=== PATIENT | male | born 1990 | race Two or more races ===

== ENCOUNTER 2020-02-09 05:06 | Emergency (ER) | payer SELFPAY ==
[~2020-02-09] VITALS: Ht 172.7 cm; Wt 110.0 kg
--- NOTE | 2020-02-09 05:21 | PHYS DOC ---
General Adult EDM: Chief Complaint: ALCOHOL INTOXICATION HPI: HPI: 29 yo M presents to the ed bibems with c/o nausea, vomiting and epigastric abdominal pain that started around 10pm last night. Reports last drink of alcohol was 4pm last night-had 5 pints of fireball and multiple cervazas. Takes no routine medications, has no pcp. Moved here from [facility] 13 years ago. No PSH. Denies any other co-ingestants. (TAHIRA KAMARA DO) Review of Systems: Review of Systems: Constitutional: Denies fever or chills. [] Eyes: Denies change in visual acuity. [] HENT: Denies nasal congestion or sore throat. [] Respiratory: Denies cough or shortness of breath. [] Cardiovascular: Denies chest pain or edema. [] GI: Denies hematochezia, hematemesis, melena or diarrhea. [] : Denies dysuria. [] Musculoskeletal: Denies back pain or joint pain. [] Integument: Denies rash. [] Neurologic: Denies headache, focal weakness or sensory changes. [] Endocrine: Denies polyuria or polydipsia. [] Lymphatic: Denies swollen glands. [] Psychiatric: Denies depression or anxiety. [] (TAHIRA KAMARA DO) Heart Score: Risk Factors: Risk Factors: DM, Current or recent (<one month) smoker, HTN, HLP, family history of CAD, obesity. Risk Scores: Score 0 - 3: 2.5% MACE over next 6 weeks - Discharge Home Score 4 - 6: 20.3% MACE over next 6 weeks - Admit for Clinical Observation Score 7 - 10: 72.7% MACE over next 6 weeks - Early Invasive Strategies (TAHIRA KAMARA DO) Physical Exam: PE: Constitutional: Actively dry heaving with clear emesis, cannot appreciate any alcohol on breath HENT: Normocephalic, atraumatic, dry mucous membranes, tongue fasciculations Eyes: EOMI, conjunctiva normal, no discharge. Neck: Normal range of motion, supple, Cardiovascular: S1/2 present, regular rhythm, tachycardic in the low 110s Lungs & Thorax: Speaking in full sentences, bilateral equal chest rise, no tachypnea or increased work of breathing Abdomen: soft, epigastric abdominal discomfort Skin: Warm, dry, no erythema, no rash, tremulous and shaky Extremities: No tenderness, no cyanosis, no edema Neurologic: Alert and oriented X 3, normal motor function, normal sensory fun ction, no focal deficits noted. [] Psychologic: Affect normal, judgement normal, mood normal, kind/appreciative of care (TAHIRA KAMARA DO) EKG: EKG: Sinus rhythm at 96 bpm, no axis deviation, QTC 443, no obvious T wave inversions, ST elevations or ST depressions (TAHIRA KAMARA DO) Radiology/Procedures: Radiology/Procedures: IMAGING REPORT Signed PATIENT: KIN HERNÁNDEZ ACCOUNT: [id number] : 1990 LOCATION: ER AGE: 29 SEX: M EXAM STATUS: PRE ER ORD. PHYSICIAN: TAHIRA KAMARA DO REASON: n/v PROCEDURE: CHEST AP ONLY CHEST AP ONLY INDICATION: Reason: n/v / Spl. Instructions: / History: . COMPARISON STUDY: None. FINDINGS: Lungs: Low lung volume. No pulmonary mass or consolidation. The tracheobronchial tree and hilar structures are normal. Pleura: No pleural effusion or pneumothorax. Heart and Mediastinum: The cardiomediastinal silhouette is normal. The great vessels of the thorax are normal. Bones and Soft Tissues: The bones and soft tissues are within normal limits. IMPRESSION: No consolidation. Electronically signed by: Shashi Camejo MD (02/09/2020 5:47 AM) [facility] DICTATED and SIGNED BY: SHASHI CAMEJO MD DATE: 02/09/20 [id number] (TAHIRA KAMARA DO) Course & Med Decision Making: Course & Med Decision Making Pertinent Labs and Imaging studies reviewed. (See chart for details) Concern for nausea, vomiting and the gastric abdominal pain in a known daily, drinker. Tachycardic and tremulous, suspect alcohol withdrawal in the started on banana bag, IV fluids, magnesium and Ativan. CXR wnl. Normal lipase, mild alcohol intoxication. S/p antiemetics and ativan, pt sleeping/resting comfortably, no further tremors. Due to shift change pt was signed out to Dr. Torres, oncoming physician for further disposition. (TAHIRA KAMARA DO) Dragon Disclaimer: Dragon Disclaimer: This electronic medical record was generated, in whole or in part, using a voice recognition dictation system. (TAHIRA KAMARA DO) Departure Departure Impression: Primary Impression: Alcohol withdrawal Additional Impression: Dehydration Disposition: 01 DC HOME SELF CARE/HOMELESS Condition: STABLE Patient Instructions: Alcohol Withdrawal TAHIRA KAMARA DO Feb 09, 2020 05:21 CAITLIN TORRES MD Feb 09, 2020 11:22
[2020-02-09] MEDS ORDERED: ONDANSETRON PF 4 MG/2 ML VIAL. IVP ONE (05:30)
[2020-02-09] MEDS ORDERED: METOCLOPRAMIDE HCL 10 MG/2 ML VIAL. ONE (05:34)
[2020-02-09] MEDS ORDERED: METOCLOPRAMIDE HCL 10 MG/2 ML VIAL. IVP ONE (05:45)
[2020-02-09] MEDS ORDERED: MAGNESIUM SULFATE 2GM 50 ML IV ONE (05:45)
[2020-02-09] MEDS ORDERED: MULTIVIT INFUSN,ADULT 4,VIT K 10 ML, THIAMINE INJ 100 MG, FOLIC ACID INJ 1 MG in IV NOR... IV ONE (05:45)
[2020-02-09 05:47] LABS: CALCIUM 8.7 mg/dL (8.5-10.1); CREATININE 0.8 mg/dL (0.7-1.3); GFR 112.8; POTASSIUM 3.1 mmol/L (3.5-5.1)
--- NOTE | 2020-02-09 05:50 | RAD ---
CHEST AP ONLY INDICATION: Reason: n/v / Spl. Instructions: / History: . COMPARISON STUDY: None. FINDINGS: Lungs: Low lung volume. No pulmonary mass or consolidation. The tracheobronchial tree and hilar structures are normal. Pleura: No pleural effusion or pneumothorax. Heart and Mediastinum: The cardiomediastinal silhouette is normal. The great vessels of the thorax are normal. Bones and Soft Tissues: The bones and soft tissues are within normal limits. IMPRESSION: No consolidation. Electronically signed by: Judd Ocampo MD (02/09/2020 5:47 AM) [facility]
[2020-02-09 05:53] LABS: ALBUMIN 3.7 g/dL (3.4-5.0); ALBUMIN/GLOBULIN RATIO 0.9 (1.0-1.7); TOTAL BILIRUBIN 1.4 mg/dL (0.2-1.0); TOTAL PROTEIN 7.9 g/dL (6.4-8.2)
[2020-02-09 06:04] LABS: MAGNESIUM 1.6 mg/dL (1.8-2.4)
[2020-02-09 06:17] LABS: BASO # 0.1 x10^3/uL (0.0-0.2); BASO % 1 % (0-3); EOS % 1 % (0-3); HEMATOCRIT 44.5 % (39.0-53.0); HEMOGLOBIN 15.9 g/dL (13.0-17.5); LYMPH # 1.6 x10^3/uL (1.0-4.8); LYMPH % 24 % (24-48); MEAN CORPUSCULAR HEMOGLOBIN 33 pg (25-35); MEAN CORPUSCULAR HGB CONC 36 g/dL (31-37); MEAN CORPUSCULAR VOLUME 91 fL (79-100); MONO # 0.5 x10^3/uL (0.0-1.1); MONO % 8 % (0-9); NEUT # 4.4 x10^3/uL (1.8-7.7); NEUT % 67 % (31-73); PLATELET COUNT 287 x10^3/uL (140-400); RED BLOOD COUNT 4.89 x10^6/uL (4.30-5.70); RED CELL DISTRIBUTION WIDTH 13.4 % (11.5-14.5); WHITE BLOOD COUNT 6.6 x10^3/uL (4.0-11.0)
--- NOTE | 2020-02-09 10:04 | EKG ---
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
[2020-02-09 11:17] VITALS: BP 138/86
== END 2020-02-09 12:26 | disposition home or self-care (01) ==
LOC: ER 05:06
DX: F10.139 Alcohol abuse with withdrawal, unspecified (principal); E86.0 Dehydration; R11.2 Nausea with vomiting, unspecified; R10.13 Epigastric pain; Y90.0 Blood alcohol level of less than 20 mg/100 ml
CPT/HCPCS: 36415; 71045; 80053; 82550; 83690; 83735; 84484; 85025; 93005; 96365; 96366; 96368; 96375; 99285; G0480; J2060; J2405; J2765; J3411; J3475; J3490; J7030

== ENCOUNTER 2020-03-23 10:46 | Emergency (ER) | payer SELFPAY ==
[~2020-03-23] VITALS: Ht 171.4 cm; Wt 100.0 kg
[2020-03-23] MEDS ORDERED: IV NORMAL SALINE 1000ML BAG 1,000 ML IV ONE ×2 (11:15→12:15)
[2020-03-23] MEDS ORDERED: HALOPERIDOL LACTATE 5 MG/ML VIAL. IVP PRN (11:15)
[2020-03-23] MEDS ORDERED: ONDANSETRON PF 4 MG/2 ML VIAL. IVP ONE (11:15)
[2020-03-23] MEDS ORDERED: FAMOTIDINE 20 MG/2 ML VIAL IVP ONE (11:30)
--- NOTE | 2020-03-23 11:40 | PHYS DOC ---
General Adult EDM: Chief Complaint: WITHDRAWL HPI: HPI: Patient is a 49 year old male who presents with alcoholism. He states that last night was his last drink. He states for the last 2 to 3 days he has been binge drinking beer and tequila. He states he has just been drinking all day and all night. He states that if he closes his eyes he feels like something is touching him, he is anxious, slight blurred vision, Right sided abdominal pain, diarrhea, tremors, headache, nausea diarrhea. Patient denies taking any medications daily. He denies any other past medical history. He was just in here about a month ago for withdrawal from alcohol. He states that he did not go to a rehab he just went home. He states that he had stopped drinking but just began drinking again in the last 3 days. Patient rates his pain at a 6 out of 10. Review of Systems: Review of Systems: Constitutional: Denies fever or chills. [] Eyes: Denies change in visual acuity. + Intermittent blurred vision [] HENT: Denies nasal congestion or sore throat. [] Respiratory: Denies cough or shortness of breath. [] Cardiovascular: Denies chest pain or edema. [] GI: + abdominal pain, +nausea, denies vomiting, bloody stools or +diarrhea. [] : Denies dysuria. [] Musculoskeletal: Denies back pain or joint pain. [] Integument: Denies rash. [] Neurologic: + headache, denies focal weakness or sensory changes. + Tactile hallucinations [] Endocrine: Denies polyuria or polydipsia. [] Lymphatic: Denies swollen glands. [] Psychiatric: Denies depression. +anxiety. [] Heart Score: Risk Factors: Risk Factors: DM, Current or recent (<one month) smoker, HTN, HLP, family history of CAD, obesity. Risk Scores: Score 0 - 3: 2.5% MACE over next 6 weeks - Discharge Home Score 4 - 6: 20.3% MACE over next 6 weeks - Admit for Clinical Observation Score 7 - 10: 72.7% MACE over next 6 weeks - Early Invasive Strategies Current Medications: Current Medications Medications (Trade) Dose Ordered Sig/Julia Start Time Stop Time Status Last Admin Dose Admin Famotidine (Pepcid Vial) 20 mg 1X ONCE 03/23/20 11:30 03/23/20 11:31 UNV Folic Acid (Folic Acid) 1 mg DAILY 03/28/20 09:00 UNV Haloperidol Lactate (Haldol Inj) 5 mg PRN Q4HRS PRN 03/23/20 11:15 UNV Lorazepam (Ativan Inj) 2 mg PRN Q1HR PRN 03/23/20 11:15 UNV Multivitamins (Thera M Plus) 1 tab DAILY 03/28/20 09:00 UNV Ondansetron HCl (Zofran) 4 mg 1X ONCE 03/23/20 11:15 03/23/20 11:16 UNV Sodium Chloride 1,000 ml @ 1,000 mls/hr 1X ONCE 03/23/20 11:15 03/23/20 12:14 UNV Thiamine HCl (Thiamine Im) 100 mg DAILY 03/28/20 09:00 04/02/20 08:59 UNV Physical Exam: PE: Constitutional: Well developed, well nourished, no acute distress, non-toxic appearance. [] HENT: Normocephalic, atraumatic, bilateral external ears normal, oropharynx moist, no oral exudates, nose normal. [] Eyes: PERRLA, EOMI, conjunctiva normal, no discharge. [] Neck: Normal range of motion, no tenderness, supple, no stridor. [] Cardiovascular:Heart rate regular rhythm, no murmur [] Lungs & Thorax: Bilateral breath sounds clear to auscultation [] Abdomen: Bowel sounds normal, soft, no tenderness, no masses, no pulsatile masses. [] Skin: Warm, dry, no erythema, no rash. [] Back: No tenderness, no CVA tenderness. [] Extremities: No tenderness, no cyanosis, no clubbing, ROM intact, no edema. [] Neurologic: Alert and oriented X 3, normal motor function, normal sensory function, no focal deficits noted. Tremors [] Psychologic: Affect normal, judgement normal, mood normal. [] EKG: EK and read by Dr SALCEDO SINUS RHYTHM AND NO STEMI Radiology/Procedures: Radiology/Procedures: [] Course & Med Decision Making: Course & Med Decision Making Pertinent Labs and Imaging studies reviewed. (See chart for details) See HPI. Alert and oriented x4. Ambulatory with a steady gait although patient does have tremors. Speaks in full clear sentences. Abdomen is soft but slightly tender to the right mid to side. He states this is the same pain he gets when he is going through withdrawals when he drinks. He states that his stomach is upset also is like a burning sensation. He denies SI or HI. Lungs are clear to auscultation all lobes. Vital signs are within normal limits. CIWA is a 9. Liver function is elevated but lipase is normal. Patient was spoken to by Siva with PAT team and patient is given resources. Patient again refuses to be admitted to the hospital. He states he needs to go home and he has to work. Patient refuses to go to a rehab facility and states his understanding of needing help and that this is a cycle. Patient understands that his withdrawal will only get worse and he will end up drinking again to help with his withdrawal. Patient states that he has to go home. Siva gave the patient resources so he knows where to go to get help when he is ready. Patient is stable. He is alert and oriented x4. He is ambulatory with a steady gait. He has been given Ativan and 2 L of normal saline in the ED. Patient is discharged home with resources. I have spoken to Dr. Salcedo concerning this patient and the care plan and he states she did send him home. [] Penelope Disclaimer: Penelope Disclaimer: This electronic medical record was generated, in whole or in part, using a voice recognition dictation system. Departure Departure Impression: Primary Impression: Alcohol withdrawal Qualified Codes: F10.239 - Alcohol dependence with withdrawal, unspecified Disposition: 01 DC HOME SELF CARE/HOMELESS Condition: STABLE Referrals: NO PCP (PCP) Patient Instructions: Alcohol Withdrawal Additional Instructions: Try to get into be seen by her primary care or go to 1 of rehab facilities that you gave him resources to. For worsening symptoms return to the emergency room. Do not drink alcohol. ROLAN NARAYAN EXPENSE ANALYST Mar 23, 2020 11:40
[2020-03-23 11:45] LABS: BASO # 0.1 x10^3/uL (0.0-0.2); BASO % 1 % (0-3); EOS # 0.1 x10^3/uL (0.0-0.7); EOS % 2 % (0-3); HEMOGLOBIN 15.4 g/dL (13.0-17.5); LYMPH # 1.1 x10^3/uL (1.0-4.8); LYMPH % 19 % (24-48); MEAN CORPUSCULAR HEMOGLOBIN 32 pg (25-35); MEAN CORPUSCULAR HGB CONC 34 g/dL (31-37); MEAN CORPUSCULAR VOLUME 93 fL (79-100); MONO # 0.8 x10^3/uL (0.0-1.1); MONO % 13 % (0-9); NEUT # 3.9 x10^3/uL (1.8-7.7); NEUT % 66 % (31-73); PLATELET COUNT 270 x10^3/uL (140-400); RED BLOOD COUNT 4.84 x10^6/uL (4.30-5.70); RED CELL DISTRIBUTION WIDTH 13.8 % (11.5-14.5)
[2020-03-23 11:52] LABS: BILIRUBIN,URINE SMALL (NEG); CLARITY,URINE TURBID; COLOR,URINE AMBER; NITRITE,URINE NEGATIVE (NEG); PROTEIN,URINE 30 mg/dL (NEG-TRACE)
[2020-03-23 12:00] LABS: BARBITURATES NEG (NEG); BENZODIAZEPINES NEG (NEG); CANNABINOIDS NEG (NEG); COCAINE NEG (NEG); METHADONE NEG (NEG); OPIATES NEG (NEG); PHENCYCLIDINE NEG (NEG)
[2020-03-23 12:03] LABS: CALCIUM 9.3 mg/dL (8.5-10.1); CREATININE 0.8 mg/dL (0.7-1.3); GFR 101.9; POTASSIUM 3.8 mmol/L (3.5-5.1)
[2020-03-23 12:03] LABS: AMPHETAMINE/METHAMPHETAMINE NEG (NEG)
[2020-03-23 12:08] LABS: BACTERIA,URINE 0 /HPF (0-FEW); RBC,URINE 0 /HPF (0-2)
[2020-03-23 12:09] LABS: ACETAMIN < 2 mcg/ml (10-30); ALBUMIN 3.9 g/dL (3.4-5.0); ETHANOL < 10 mg/dL (0-10); MAGNESIUM 1.9 mg/dL (1.8-2.4); SALIC < 2.8 mg/dL (2.8-20.0); TOTAL BILIRUBIN 0.8 mg/dL (0.2-1.0); TOTAL PROTEIN 7.7 g/dL (6.4-8.2)
[2020-03-23 12:09] LABS: WBC,URINE 0 /HPF (0-4)
[2020-03-23 12:10] LABS: AMORPHOUS SEDIMENT,UR PRESENT /HPF
[2020-03-23] MEDS ORDERED: MULTIVITAMIN with MINERAL TABLET. PO SCH (14:00)
[2020-03-23] MEDS ORDERED: THIAMINE IM 200 MG/2 ML VIAL. IM SCH (14:00)
[2020-03-23] MEDS ORDERED: FOLIC ACID 1 MG TABLET. PO SCH (14:00)
[2020-03-23 14:09] VITALS: BP 141/80
== END 2020-03-23 14:44 | disposition home or self-care (01) ==
LOC: EDBD 10:46 → MERGE 10:46 → ER 10:46
DX: F10.239 Alcohol dependence with withdrawal, unspecified (principal); H53.8 Other visual disturbances; R19.7 Diarrhea, unspecified; R11.0 Nausea; R10.9 Unspecified abdominal pain
CPT/HCPCS: 36415; 80053; 80307; 80329; 81001; 83690; 83735; 83880; 84484; 85025; 93005; 96361; 96372; 96374; 96375; 99284; G0480; J2060; J2405; J3411; J3490; J7030

== ENCOUNTER 2020-04-01 01:12 | Emergency (ER) | payer SELFPAY ==
[~2020-04-01] VITALS: Ht 170.2 cm; Wt 100.0 kg
[2020-04-01] MEDS ORDERED: ONDANSETRON PF 4 MG/2 ML VIAL. IVP ONE (01:30)
[2020-04-01] MEDS ORDERED: IV NORMAL SALINE 1000ML BAG 1,000 ML IV SCH (01:30)
[2020-04-01 01:52] LABS: BASO # 0.1 x10^3/uL (0.0-0.2); BASO % 1 % (0-3); EOS # 0.1 x10^3/uL (0.0-0.7); EOS % 1 % (0-3); HEMATOCRIT 47.3 % (39.0-53.0); HEMOGLOBIN 16.6 g/dL (13.0-17.5); LYMPH % 50 % (24-48); MEAN CORPUSCULAR HEMOGLOBIN 33 pg (25-35); MEAN CORPUSCULAR HGB CONC 35 g/dL (31-37); MEAN CORPUSCULAR VOLUME 93 fL (79-100); MONO # 0.5 x10^3/uL (0.0-1.1); MONO % 7 % (0-9); NEUT # 3.3 x10^3/uL (1.8-7.7); NEUT % 41 % (31-73); PLATELET COUNT 302 x10^3/uL (140-400); RED BLOOD COUNT 5.09 x10^6/uL (4.30-5.70); RED CELL DISTRIBUTION WIDTH 13.8 % (11.5-14.5)
[2020-04-01 02:09] LABS: CALCIUM 8.4 mg/dL (8.5-10.1); CREATININE 0.8 mg/dL (0.7-1.3); GFR 112.8; POTASSIUM 3.6 mmol/L (3.5-5.1)
[2020-04-01] MEDS ORDERED: THIAMINE INJ 100 MG in IV DEXTROSE 5% 50 ML IV ONE (02:30)
--- NOTE | 2020-04-01 03:01 | PHYS DOC ---
Past Medical History Past Medical History: No Pertinent History (KINGS MALONE MD) Past Surgical History: No Surgical History (KINGS MALONE MD) Smoking Status: Never Smoker Alcohol Use: Heavy (KINGS MALONE MD) Adult General Chief Complaint Chief Complaint: ALCOHOL INTOXICATION HPI HPI Patient is a 29 year old with noted past medical presents emergency department for alcohol intoxication nausea vomiting. Patient was found by EMS to be acutely intoxicated. Patient had episodes of vomiting. No known fevers, chills, chest or shortness of breath. No recent sick contact (KINGS MALONE MD) Review of Systems Review of Systems Constitutional: Denies fever or chills [] Eyes: Denies change in visual acuity, redness, or eye pain [] HENT: Denies nasal congestion or sore throat [] Respiratory: Denies cough or shortness of breath [] Cardiovascular: No additional information not addressed in HPI [] GI: Denies abdominal pain, nausea, vomiting, bloody stools or diarrhea [] : Denies dysuria or hematuria [] Musculoskeletal: Denies back pain or joint pain [] Integument: Denies rash or skin lesions [] Neurologic: Denies headache, focal weakness or sensory changes [] Endocrine: Denies polyuria or polydipsia [] All other systems were reviewed and found to be within normal limits, except as documented in this note. (KINGS MALONE MD) Current Medications Current Medications Current Medications Medications (Trade) Dose Ordered Sig/Julia Start Time Stop Time Status Last Admin Dose Admin Ondansetron HCl (Zofran) 4 mg 1X ONCE 04/01/20 01:30 04/01/20 01:31 DC 04/01/20 01:41 4 MG Sodium Chloride 1,000 ml @ 1,000 mls/hr Q1H 04/01/20 01:30 04/01/20 02:29 DC 04/01/20 01:41 1,000 MLS/HR Thiamine HCl 100 mg/Dextrose 51 ml @ 102 mls/hr 1X ONCE 04/01/20 02:30 04/01/20 02:59 DC 04/01/20 03:14 102 MLS/HR (TABITHA APODACA MD) Allergies Allergies Allergies Coded Allergies Type Severity Reaction Last Updated Verified No Known Drug Allergies 02/09/20 No (TABITHA APODACA MD) Physical Exam Physical Exam Constitutional: Well developed, well nourished, no acute distress, non-toxic appearance. [] HENT: Normocephalic, atraumatic, bilateral external ears normal, oropharynx moist, no oral exudates, nose normal. [] Eyes: PERRLA, EOMI, conjunctiva normal, no discharge. [] Neck: Normal range of motion, no tenderness, supple, no stridor. [] Cardiovascular:Heart rate regular rhythm, no murmur [] Lungs & Thorax: Bilateral breath sounds clear to auscultation [] Abdomen: Bowel sounds normal, soft, no tenderness, no masses, no pulsatile m asses. [] Skin: Warm, dry, no erythema, no rash. [] Back: No tenderness, no CVA tenderness. [] Extremities: No tenderness, no cyanosis, no clubbing, ROM intact, no edema. [] Neurologic: Alert and oriented X 3, normal motor function, normal sensory function, no focal deficits noted. [] Psychologic: Affect normal, judgement normal, mood normal. [] (KINGS MALONE MD) Current Patient Data Vital Signs Vital Signs Date Time Temp Pulse Resp B/P (MAP) Pulse Ox O2 Delivery O2 Flow Rate FiO2 04/01/20 06:48 68 111/61 (78) 95 Nasal Cannula 2.0 04/01/20 05:48 27 04/01/20 01:13 97.9 97.9 (TABITHA APODACA MD) Lab Values Laboratory Tests Test 04/01/20 01:34 White Blood Count 8.0 x10^3/uL (4.0-11.0) Red Blood Count 5.09 x10^6/uL (4.30-5.70) Hemoglobin 16.6 g/dL (13.0-17.5) Hematocrit 47.3 % (39.0-53.0) Mean Corpuscular Volume 93 fL (79-100) Mean Corpuscular Hemoglobin 33 pg (25-35) Mean Corpuscular Hemoglobin Concent 35 g/dL (31-37) Red Cell Distribution Width 13.8 % (11.5-14.5) Platelet Count 302 x10^3/uL (140-400) Neutrophils (%) (Auto) 41 % (31-73) Lymphocytes (%) (Auto) 50 % (24-48) H Monocytes (%) (Auto) 7 % (0-9) Eosinophils (%) (Auto) 1 % (0-3) Basophils (%) (Auto) 1 % (0-3) Neutrophils # (Auto) 3.3 x10^3/uL (1.8-7.7) Lymphocytes # (Auto) 4.0 x10^3/uL (1.0-4.8) Monocytes # (Auto) 0.5 x10^3/uL (0.0-1.1) Eosinophils # (Auto) 0.1 x10^3/uL (0.0-0.7) Basophils # (Auto) 0.1 x10^3/uL (0.0-0.2) Sodium Level 146 mmol/L (136-145) H Potassium Level 3.6 mmol/L (3.5-5.1) Chloride Level 107 mmol/L (98-107) Carbon Dioxide Level 26 mmol/L (21-32) Anion Gap 13 (6-14) Blood Urea Nitrogen 5 mg/dL (8-26) L Creatinine 0.8 mg/dL (0.7-1.3) Estimated GFR (Cockcroft-Gault) 112.8 Glucose Level 119 mg/dL (70-99) H Calcium Level 8.4 mg/dL (8.5-10.1) L Lipase 140 U/L (73-393) Ethyl Alcohol Level 388 mg/dL (0-10) H Laboratory Tests 04/01/20 01:34 Laboratory Tests 04/01/20 01:34 (TABITHA APODACA MD) EKG EKG [] (KINGS MALONE MD) Radiology/Procedures Radiology/Procedures [] (KINGS MALONE MD) Course & Med Decision Making Course & Med Decision Making Pertinent Labs and Imaging studies reviewed. (See chart for details) [] (KINGS MALONE MD) Course & Med Decision Making This is a pleasant 29-year-old male who was seen by previous provider for intoxication with nausea and vomiting. He had been sleeping through the night when I received him at 6 AM. On examination the patient is sleeping comfortably. Around 8:00 the patient was more awake able to walk on his own accord to the restroom. He denies having any pain and is feeling much better this morning. He denies suicidal or homicidal ideation. He has a normal physical exam. We will discharge him to follow-up with his PCP in 1 to 2 days. He is to return for any worsening or concerning conditions. Physical exam: Constitutional no acute distress, resting comfortably in examination room HEENT. Head normocephalic and atraumatic, pupils equal round and reactive to light, extraocular movements intact, no scleral icterus or erythema, mucous membranes moist CV: Palpable pulse with a nl rate and regular rhythm. Respiratory: Not in any respiratory distress breathing comfortably Abdomen: Soft nontender without rebound tenderness or guarding. Negative [place]'s point. Negative Nieves sign. Nondistended. Skin: Normal color Psych: Makes eye contact, affect congruent with mood Neuro exam: Alert, speech is normal. Normal cranial nerves, no focal neurologic deficits. Smile symmetric. (TABITHA APODACA MD) Dragon Disclaimer Dragon Disclaimer This electronic medical record was generated, in whole or in part, using a voice recognition dictation system. (KINGS MALONE MD) Departure Departure Impression: Primary Impression: Alcohol intoxication Disposition: 01 DC HOME SELF CARE/HOMELESS Condition: STABLE Referrals: NO PCP (PCP) Patient Instructions: Substance Abuse-Brief Additional Instructions: Follow-up with your primary physician in 1 to 2 days. Return to the emergency department if you have any new or concerning findings. KINGS MALONE MD Apr 01, 2020 03:01 TABITHA APODACA MD Apr 01, 2020 08:40
[2020-04-01 08:30] VITALS: BP 111/70
== END 2020-04-01 10:40 | disposition home or self-care (01) ==
LOC: ER 01:12
DX: F10.229 Alcohol dependence with intoxication, unspecified (principal); Y90.8 Blood alcohol level of 240 mg/100 ml or more; R11.2 Nausea with vomiting, unspecified
CPT/HCPCS: 36415; 80048; 83690; 85025; 96361; 96365; 96375; 99285; G0480; J2405; J3411; J7030; J7060